=== PATIENT | female | born 1965 | race Caucasian/White ===

== ENCOUNTER 2017-12-22 11:57 | Emergency (ER) | payer OTHER ==
[2017-12-22 13:47] LABS: ABS Basophils 0.1 10^3/ul (0-0.2); ABS Eosinophils 0 10^3/ul (0-0.6); ABS Lymphocytes 1.3 10^3/ul (1.0-4.8); ABS Monocytes 0.8 10^3/ul (0-0.8); ABS Neutrophils 9.4 10^3/ul (1.5-7.7); ABS Nucleated RBC 0 10^3/ul; Eosinophil % 0.2 % (0-6); Hematocrit 40 % (35-47); Hemoglobin 13.5 g/dl (12.0-16.0); Lymphocyte % 11.1 % (25-47); Mean Corpuscular HGB Conc 34 g/dl (31-36); Mean Corpuscular Hemoglobin 29 pg (27-31); Mean Corpuscular Volume 86 fL (80-97); Mean Platelet Volume 8 um3 (7.4-10.4); Nucleated Red Blood Cells % 0; Platelet Count 329 10^3/ul (150-450); Red Cell Distribution Width 14 % (10.5-15); White Blood Count 11.5 10^3/ul (3.5-10.8)
[2017-12-22 13:53] LABS: INR 0.96 (0.77-1.02)
[2017-12-22 14:12] LABS: EGFR Non-African American 55.6 (>60)
[2017-12-22 14:23] LABS: Urine Appearance Cloudy; Urine Blood 1+ (Negative); Urine Color Yellow; Urine Ketones 1+ (Negative); Urine Protein Negative (Negative); Urine Specific Gravity 1.006 (1.010-1.030); Urine Urobilinogen Negative (Negative)
[2017-12-22] MEDS ORDERED: Iodixanol* (CONTRAST) 320 MG/ML 100 ML SDV IV ONE (15:28)
--- NOTE | 2017-12-22 17:33 | RAD ---
Indication: Right lower quadrant pain. Contrast: Administered 74.1 ml of VISAPAQUE 320 mg/ml CT of the abdomen and pelvis was performed after oral and IV contrast administration. Coronal and sagittal reconstructed images were obtained. Lung bases demonstrate no pleural fluid, nodules or masses. Heart is of normal size without evidence of pericardial effusion. Liver is normal in size. No focal lesions or intrahepatic ductal dilatation is noted. The gallbladder demonstrates no calcified gallstones. No pericholecystic fluid or wall thickening is identified. The spleen is normal in size. The pancreas demonstrates no mass or pancreatic ductal dilatation. The common duct is not dilated. No adrenal lesions are noted. The kidneys demonstrate symmetric nephrograms without focal lesions. No hydronephrosis is noted. A structure resembling a normal appendix is noted. Uterus and ovaries are unremarkable. Urinary bladder is unremarkable. No hernias are identified. No dilated loops of bowel are noted. No evidence of bowel obstruction is noted. No pelvic adenopathy is noted. The urinary bladder is unremarkable. There is a cyst which appears to arise from the wall of the vagina. This may represent a Isauro's duct cyst. IMPRESSION: No definite evidence of appendicitis is noted. No other masses or fluid collections are noted. There is a vaginal wall cyst which may represent a Isauro's duct cyst. Clinical correlation is suggested.
[2017-12-22 19:15] VITALS: BP 130/61
--- NOTE | 2017-12-22 23:19 | ED ---
Marco Yuan Stephanie, scribed for Mari Dawson MD on 12/22/17 at 1338 . Abdominal Pain/Female - HPI Summary HPI Summary: The pt is a 52 y/o F presenting to the ED with c/o RLQ abd pain that began yesterday at 14:00. Symptoms include R lower back pain, nausea and diarrhea. The pt denies vomiting, fever and dysuria. The pain is currently rated as a 4 in severity and a 7 in severity at its worst. The pt states she was diagnosed with a UTI on 12/12/17. The pt had diarrhea on 12/13/17 all day. The pt takes Pantoprazole daily and sucralfate as needed. The pt had a root canal on . - History of Current Complaint Chief Complaint: EDAbdPain Stated Complaint: ABD PAIN Time Seen by Provider: 12/22/17 13:25 Hx Obtained From: Patient Hx Last Menstrual Period: MIRENA IUD ?: No Onset/Duration: Gradual Onset, Lasting Days - 1, Still Present Timing: Constant Severity Currently: Mild Pain Intensity: 4 Pain Scale Used: 0-10 Numeric Location: Discrete At: RLQ Radiates: No Character: Dull Aggravating Factor(s): Nothing Alleviating Factor(s): Nothing Associated Signs and Symptoms: Positive: Back Pain - R lower, Nausea, Diarrhea. Negative: Fever, Urinary Symptoms - negative: dysuria, Vomiting Allergies/Adverse Reactions: Allergies Allergy/AdvReac Type Severity Reaction Status Date / Time Penicillins Allergy Severe Itching Verified 12/22/17 12:03 Home Medications: Home Medications Cholecalciferol TAB* [Vitamin D TAB*] 400 unit PO DAILY 12/22/17 [History Confirmed 12/22/17] Diclofenac Sodium EC TAB* [Voltaren EC TAB*] 50 mg PO TID WITH MEALS 12/22/17 [ History Confirmed 12/22/17] Diflunisal TAB* [Dolobid TAB*] 500 mg PO BID 12/22/17 [History Confirmed ] Levonorgestrel-Ethin Estradiol [Levonor-Eth Estrad 0.1-0.02 mg] 1 tab PO DAILY 12/22/17 [History Confirmed 12/22/17] Multivitamins/Minerals TAB* [Theragran/minerals TAB*] 1 tab PO DAILY 12/22/17 [ History Confirmed 12/22/17] Pantoprazole TAB (NF) [Protonix TAB (NF)] 40 mg PO DAILY 12/22/17 [History Confirmed 12/22/17] PMH/Surg Hx/FS Hx/Imm Hx Endocrine/Hematology History: Denies: Hx Diabetes, Hx Thyroid Disease Cardiovascular History: Denies: Hx Hypertension Respiratory History: Denies: Hx Asthma, Hx Chronic Obstructive Pulmonary Disease (COPD) GI History: Reports: Hx Gastroesophageal Reflux Disease Denies: Hx Ulcer EENT History: Denies: Hx Deafness - Surgical History Surgery Procedure, Year, and Place: NONE Infectious Disease History: No Infectious Disease History: Denies: Hx Clostridium Difficile, Hx Hepatitis, Hx Human Immunodeficiency Virus (HIV), Hx of Known/Suspected MRSA, Traveled Outside the [place] in Last 30 Days - Family History Known Family History: Positive: Cardiac Disease, Diabetes - Social History Occupation: Employed Full-time Lives: With Family Alcohol Use: Rare Substance Use Type: Reports: None Smoking Status (MU): Never Smoked Tobacco Review of Systems Negative: Fever Positive: Abdominal Pain, Diarrhea, Nausea. Negative: Vomiting Negative: dysuria Positive: Other - R lower back pain All Other Systems Reviewed And Are Negative: Yes Physical Exam - Summary Physical Exam Summary: Appearance: Ill-appearing, moderate pain distress, Well-nourished Skin: Warm, color reflects adequate perfusion Head: Normal Head/Face inspection Eyes: Conjunctiva clear ENT: Normal inspection Neck: Supple, no nodes, no JVD. Respiratory: Lungs clear, Normal breath sounds, no respiratory distress Cardio: RRR, No murmur, pulses normal, brisk capillary refill Abdomen: Mild diffuse tenderness, no guarding, no rebound, No Mcburney's point tenderness. Bowel sounds: present Musculoskeletal: Strength Intact/ ROM intact. No calf tenderness. No edema. Neuro: Alert, muscle tone normal, facial symmetry, speech normal, sensory/motor intact Psychological: Normal Triage Information Reviewed: Yes Vital Signs On Initial Exam: Initial Vitals Temp Pulse Resp BP Pulse Ox 98.2 F 82 18 135/60 100 12/22/17 11:58 12/22/17 11:58 12/22/17 11:58 12/22/17 11:58 12/22/17 11:58 Vital Signs Reviewed: Yes Diagnostics - Vital Signs Vital Signs Temp Pulse Resp BP Pulse Ox 12/22/17 11:58 98.2 F 82 18 135/60 100 - Laboratory Result Diagrams: 12/22/17 13:38 12/22/17 13:38 Lab Statement: Any lab studies that have been ordered have been reviewed, and results considered in the medical decision making process. - CT Abdomen/pelvis CT Interpretation: Positive (See Comments) CT Interpretation Completed By: Radiologist - No definite evidence of appendicitis is noted. No other masses or fluid collections are noted. There is a vaginal wall cyst which may represent a Isauro's duct cyst. Clinical correlation is suggested. Re-Evaluation - Re-Evaluation First Eval Re-Evaluation Time: 16:50 Change: Unchanged - Pain is not much of anything. The pt is going to CT. Abdominal Pain Fem Course/Dx - Course Course Of Treatment: ED physician discussed benign CT abdomen/pelvis results with the pt. ED physician discussed discharge plan with the pt and the pt agrees with plan. - Diagnoses Provider Diagnoses: UTI (urinary tract infection), Abdominal pain, Diarrhea Discharge - Discharge Plan Condition: Stable Disposition: HOME Patient Education Materials: Urinary Tract Infection in Women (ED), Acute Diarrhea (ED), Acute Abdominal Pain (ED) Referrals: Michelle Rey MD [Primary Care Provider] - 2 Days Additional Instructions: We have given you a copy of your labs and CT. We did not find a serious cause of your abdominal pain. Your appendix was normal. You will want to have [employer]UDENT [employer] COUNSELOR follow up for the CT findings of the Isauro cyst in the vaginal wall. We have sent diarrhea studies on you. We will notify you if you need further treatment based on those results. You should finish the Bactrim antibiotic for your UTI and you should see Dr. Rey after you finish the antibiotic to be sure that the infection has cleared. Return to the ER if you have any new or worsening symptoms. The documentation as recorded by the Marco vanessa Stephanie accurately reflects the service I personally performed and the decisions made by me, Mari Dawson MD.
== END 2017-12-22 19:16 | disposition home or self-care (01) ==
LOC: ED 11:57
DX: N39.0 Urinary tract infection, site not specified (principal); R10.9 Unspecified abdominal pain; R19.7 Diarrhea, unspecified; Z88.0 Allergy status to penicillin
CPT/HCPCS: 36415; 74177; 80053; 81003; 81015; 82150; 82550; 83605; 83690; 83735; 84484; 84702; 85025; 85610; 86140; 87086; 96374; 99282; Q9967